=== PATIENT | male | born 1995 | race Caucasian/White ===

== ENCOUNTER 2020-05-07 06:01 | Emergency (ER) | payer OTHER ==
[~2020-05-07] VITALS: Ht 185.4 cm; Wt 94.6 kg
[2020-05-07] MEDS ORDERED: FLUO20CA22 PO (06:08)
[2020-05-07 08:16] LABS: EOS # 0.1 10^3/uL (0.0-0.5); HEMATOCRIT 45.8 % (42.0-52.0); HEMOGLOBIN 15.4 g/dl (13.5-17.5); LYMPH # 1.4 10^3/uL (1.5-5.0); LYMPH % 34.8 % (24.0-44.0); MEAN CORPUSCULAR HEMOGLOBIN 28.7 pg (27.0-33.0); MEAN CORPUSCULAR HGB CONC 33.6 g/dl (32.0-36.5); MEAN CORPUSCULAR VOLUME 85.3 fl (80.0-96.0); MONO # 0.4 10^3/uL (0.0-0.8); NEUTROPHILS % 49.9 % (36.0-66.0); PLATELET COUNT, AUTOMATED 195 10^3/uL (150-450); RED BLOOD COUNT 5.37 10^6/uL (4.30-6.10)
--- NOTE | 2020-05-07 08:23 | REP ---
INDICATION: ruq pain/flank pain. COMPARISON: None. TECHNIQUE: Right upper quadrant sonography. FINDINGS: Scanning through the right upper quadrant of the abdomen demonstrates a normal sized, thin-walled gallbladder without evidence of stone or polyp. Common bile duct is normal measuring 0.4 cm in greatest diameter. No focal liver lesion is seen. Liver size is normal. Pancreas is obscured by abdominal gas. No right renal abnormality is seen. There is no evidence of ascites. The right kidney measures 11.0 x 6.3 x 5.5 cm. IMPRESSION: Negative right upper quadrant sonography. <Electronically signed by Haroon Hall > 05/07/20 0819
[2020-05-07 08:33] LABS: ALBUMIN 4.4 GM/DL (3.2-5.2); ALT/SGPT 34 U/L (12-78); BILIRUBIN,DIRECT < 0.1 MG/DL (0.0-0.2); BILIRUBIN,TOTAL 0.4 MG/DL (0.2-1.0); BLOOD UREA NITROGEN 19 MG/DL (7-18); CALCIUM LEVEL 9.4 MG/DL (8.5-10.1); CARBON DIOXIDE LEVEL 29 MEQ/L (21-32); CHLORIDE LEVEL 105 MEQ/L (98-107); CREATININE FOR GFR 1.04 MG/DL (0.70-1.30); GLOMERULAR FILTRATION RATE > 60.0 (>60); GLUCOSE, FASTING 95 MG/DL (70-100); LIPASE 81 U/L (73-393); POTASSIUM SERUM 4.3 MEQ/L (3.5-5.1); SODIUM LEVEL 141 MEQ/L (136-145); TOTAL PROTEIN 7.5 GM/DL (6.4-8.2)
[2020-05-07 09:41] VITALS: BP 111/57
[2020-05-07] MEDS ORDERED: DICY20TA11 PO (09:42)
[2020-05-07] MEDS ORDERED: PROT1TAB2 PO (09:42)
== END 2020-05-07 10:01 | disposition home or self-care (01) ==
LOC: M ED 06:01
DX: R10.10 Upper abdominal pain, unspecified (principal)